=== PATIENT | female | born 2005 | race Hispanic/Latino ===

== ENCOUNTER 2024-04-22 14:03 | Day surgery (SDC) | payer SELFPAY ==
[2024-04-22] MEDS ORDERED: hydrALAZINE 20 MG/ML VIAL SLOW IVP PRN (14:18)
[2024-04-22 14:39] VITALS: BMI 31.5
[2024-04-22] MEDS ORDERED: Lactated Ringer's 1,000 ML IV SCH (15:15)
[2024-04-22 16:05] LABS: Hematocrit 33.4 % (34.9-44.5); Mean Corpuscular HGB CONC 35.9 g/dL (32.0-36.0); Mean Corpuscular Hemoglobin 30.5 pg (27.0-33.0); Mean Corpuscular Volume 84.8 fL (81.6-98.3); Platelet Count 227 10x3/uL (150-450); RBC Distribution Width 13.6 % (11.5-14.5); Red Blood Cell (RBC) Count 3.94 10x6/uL (3.90-5.03); White Blood Cell (WBC) Count 10.3 10x3/uL (3.5-10.5)
[2024-04-22 16:31] LABS: Amphetamine Not Detected (NotDetected); Barbiturates Screen Not Detected (NotDetected); Benzodiazepine Screen Not Detected (NotDetected); Cocaine Metabolite Screen Not Detected (NotDetected); Methadone Not Detected (NotDetected); Methamphetamine Not Detected (NotDetected); Opiate Screen Not Detected (NotDetected); Oxycodone Screen Not Detected (NotDetected); Phencyclidine (PCP) Not Detected (NotDetected); THC/Cannabinoid Screen Not Detected (NotDetected); Tricyclic Screen Not Detected (NotDetected)
[2024-04-22 16:43] LABS: Syphilis Antibody Nonreactive (Nonreactive); Syphilis Antibody Index 0.07 S/CO (<1.00 Non-Reactive)
[2024-04-22 16:44] LABS: HBsAg Index 0.19 S/CO (0-0.99); HIV (1/2) Antibody/Antigen Non-Reactive (NonReactive); HIV 1/2 INDEX 0.05 S/CO (<1.00); Hep B Surf Ag - L&D Non-Reactive S/CO (NonReactive)
[2024-04-23 14:21] LABS: Chlamydia by PCR, Vaginal Swab Not Detected (NotDetected); GC by PCR, Vaginal Swab Not Detected (NotDetected)
== END 2024-04-22 17:33 | disposition home or self-care (01) ==
LOC: CSHLD/OP 14:03
PROVIDERS: ATTEND Obstetrics & Gynecology
DX: O46.92 Antepartum hemorrhage, unspecified, second trimester (principal); O99.891 Other specified diseases and conditions complicating pregnancy; R10.32 Left lower quadrant pain; R00.0 Tachycardia, unspecified; O99.332 Smoking (tobacco) complicating pregnancy, second trimester; F17.290 Nicotine dependence, other tobacco product, uncomplicated; Z3A.21 21 weeks gestation of pregnancy; Z79.899 Other long term (current) drug therapy; Z90.89 Acquired absence of other organs
CPT/HCPCS: 36415; 76815; 80306; 85027; 86762; 86780; 86850; 86900; 86901; 87340; 87389; 87480; 87491; 87510; 87591; 87660; 96360; 99285

== ENCOUNTER 2024-08-18 18:00 | Inpatient (IN) | payer OTHER ==
[2024-08-18 18:34] VITALS: BMI 32.7
[2024-08-18] MEDS ORDERED: Misoprostol 100 MCG TAB VAG SCH (18:36)
[2024-08-18] MEDS ORDERED: Oxytocin 30 units/NS 500 ML 500 ML IV SCH ×2 (18:36)
[2024-08-18] MEDS ORDERED: Ondansetron PF 4 MG/2 ML Vial IVP PRN (18:36)
[2024-08-18] MEDS ORDERED: Carboprost 250 MCG/ML AMP IM PRN (18:36)
[2024-08-18] MEDS ORDERED: Lidocaine 1% (PF) 30 ML VIAL SC PRN (18:36)
[2024-08-18] MEDS ORDERED: hydrALAZINE 20 MG/ML VIAL SLOW IVP PRN (18:36)
[2024-08-18] MEDS ORDERED: Ibuprofen 800 MG TAB PO PRN (18:36)
[2024-08-18] MEDS ORDERED: Methylergonovine 0.2 MG/ML VIAL IM PRN (18:36)
[2024-08-18] MEDS ORDERED: Tranexamic Acid 1,000 MG/10 ML VIAL IVP PRN (18:36)
[2024-08-18] MEDS ORDERED: Misoprostol 200 MCG TAB PR PRN (18:36)
[2024-08-18] MEDS ORDERED: Diphenoxylate HCl/Atropine Tablet PO PRN ×2 (18:36)
[2024-08-18] MEDS ORDERED: Promethazine HCl 25 MG/ML VIAL IM PRN (18:36)
[2024-08-18 19:39] LABS: Hematocrit 34.1 % (34.9-44.5); Hemoglobin 11.5 g/dL (12.0-15.5); Mean Corpuscular HGB CONC 33.7 g/dL (32.0-36.0); Mean Corpuscular Hemoglobin 26.9 pg (27.0-33.0); Mean Corpuscular Volume 79.9 fL (81.6-98.3); Mean Platelet Volume 11.6 fL (7.4-10.4); Platelet Count 237 10x3/uL (150-450); RBC Distribution Width 14.5 % (11.5-14.5); Red Blood Cell (RBC) Count 4.27 10x6/uL (3.90-5.03); White Blood Cell (WBC) Count 7.5 10x3/uL (3.5-10.5)
[2024-08-18] MEDS: Penicillin G Potassium 5 MILL.UNITS in Sodium Chloride 0.9% 100 ML IVPB SCH (19:44)
[2024-08-18 21:22] LABS: Hep B Surf Ag - L&D Non-Reactive S/CO (NonReactive)
[2024-08-18 21:23] LABS: Syphilis Antibody Nonreactive (Nonreactive); Syphilis Antibody Index 0.06 S/CO (<1.00 Non-Reactive)
[2024-08-18] MEDS: Penicillin G 2.5 MILL.units 2.5 MILL.UNITS in Premix 1 BAG IVPB SCH (23:42)
[2024-08-19] MEDS: Oxytocin 30 units/NS 500 ML 500 ML IV SCH (02:39)
[2024-08-19] MEDS: Acetaminophen 500 MG TAB PO PRN (07:00)
[2024-08-19 08:16] LABS: #Basophils 0.02 10x3/uL (0.0-0.2); #Eosinophils 0.02 10x3/uL (0.0-0.5); %Basophils 0.2 % (0.0-2.0); %Eosinophils 0.2 % (0.0-6.0); %Lymphocytes 24.7 % (18.0-47.0); %Monocytes 6.2 % (0.0-10.0); %Neutrophils 68.1 % (40.0-75.0); Hematocrit 35.7 % (34.9-44.5); Hemoglobin 11.5 g/dL (12.0-15.5); Mean Corpuscular HGB CONC 32.2 g/dL (32.0-36.0); Mean Corpuscular Hemoglobin 26.2 pg (27.0-33.0); Mean Corpuscular Volume 81.3 fL (81.6-98.3); Mean Platelet Volume 11.7 fL (7.4-10.4); Platelet Count 204 10x3/uL (150-450); RBC Distribution Width 14.3 % (11.5-14.5); Red Blood Cell (RBC) Count 4.39 10x6/uL (3.90-5.03); White Blood Cell (WBC) Count 8.1 10x3/uL (3.5-10.5)
[2024-08-19 08:28] LABS: ALT (SGPT) 14 U/L (8-55); AST (SGOT) 14 U/L (5-34); Albumin 2.5 g/dL (3.5-5.0); Alkaline Phosphatase 290 U/L (40-100); Anion Gap 13 mmol/L (10-20); BUN (Urea Nitrogen) 12 mg/dL (7.0-18.7); Bilirubin, Total 0.3 mg/dL (0.2-1.2); Calc. Creatinine Clearance 219 mL/min (70-130); Calcium 9.1 mg/dL (7.8-10.44); Carbon Dioxide 20 mmol/L (22-29); Chloride 109 mmol/L (98-107); Estimated GFR 128; Globulin 3.7 g/dL (2.4-3.5); Glucose 81 mg/dL (70-105); Potassium 4.2 mmol/L (3.5-5.1); Protein, Total 6.2 g/dL (6.0-8.3); Sodium 138 mmol/L (136-145)
[2024-08-19 08:28] LABS: Creatinine, Urine 69.94 mg/dL (47-110)
[2024-08-19] MEDS: fentaNYL 50 mcg/mL 1 mL Vial SLOW IVP PRN (13:09)
[2024-08-19] MEDS: fentaNYL/Ropivacaine Epidural 100 ML ONE (15:24)
[2024-08-19] MEDS ORDERED: diphenhydrAMINE 50 MG/ML VIAL IVP PRN (16:03)
[2024-08-19] MEDS ORDERED: Promethazine HCl 25 MG/ML VIAL IM PRN ×2 (16:03→21:06)
[2024-08-19] MEDS ORDERED: ePHEDrine Sulfate 50 MG/10 ML VIAL SLOW IVP PRN (16:03)
[2024-08-19] MEDS ORDERED: Naloxone HCl 0.4 mg/ml Vial IVP PRN ×2 (16:03)
[2024-08-19] MEDS ORDERED: Moisturizing Cream (Eucerin) 113 GM JAR TOP PRN (16:03)
[2024-08-19] MEDS ORDERED: Ondansetron PF 4 MG/2 ML Vial IVP PRN ×2 (16:03→21:06)
[2024-08-19] MEDS ORDERED: Lactated Ringer's 500 ML IV PRN (16:03)
[2024-08-19] MEDS ORDERED: Acetaminophen 325 MG TAB PO PRN (16:03)
[2024-08-19] MEDS ORDERED: fentaNYL 2 mcg/Ropivacaine 0.2% Epidural 100 ML CADD EPIDURAL SCH (16:15)
[2024-08-19] MEDS ORDERED: Communication Order-Pharmacy FS SCH (16:15)
[2024-08-19] MEDS ORDERED: Measles/Mumps/Rubella 10 MCG/0.5 ML VIAL SC ONE (21:06)
[2024-08-19] MEDS ORDERED: Misoprostol 200 MCG TAB VAG PRN (21:06)
[2024-08-19] MEDS ORDERED: diphenhydrAMINE 25 MG CAP PO PRN (21:06)
[2024-08-19] MEDS ORDERED: Bisacodyl 10 MG SUPP PR PRN (21:06)
[2024-08-19] MEDS ORDERED: Oxytocin 30 units/NS 500 ML 500 ML IV SCH (21:06)
[2024-08-19] MEDS ORDERED: hydrALAZINE 20 MG/ML VIAL SLOW IVP PRN (21:06)
[2024-08-19] MEDS ORDERED: Benzocaine-Menthol 82.5 ML CAN TOP PRN (21:06)
[2024-08-19] MEDS ORDERED: Preparation H Ointment 28 GM TUBE PR PRN (21:06)
[2024-08-19] MEDS ORDERED: Boostrix 0.5 ML (Tdap) VIAL (>/=7 yrs of age) IM ONE (21:06)
[2024-08-19] MEDS ORDERED: Milk Of Magnesia 30 ML UDCUP PO PRN (21:06)
[2024-08-19] MEDS ORDERED: Lanolin Ointment 7 GM TUBE TOP PRN (21:06)
[2024-08-19] MEDS: Ibuprofen 800 MG TAB PO SCH ×2 (21:50)
[2024-08-19] MEDS: Docusate 100 MG CAP PO SCH (21:50)
[2024-08-20] MEDS: Ferrous Sulfate 325 MG TAB PO SCH (08:32)
[2024-08-20] MEDS: Docusate 100 MG CAP PO SCH (08:33)
[2024-08-20] MEDS: Prenatal Vitamin 1 TAB PO SCH (08:33)
[2024-08-20] MEDS: Acetaminophen 500 MG TAB PO SCH (19:18)
[2024-08-21 07:38] VITALS: BP 127/65; TEMP 97.7
== END 2024-08-21 11:45 | disposition home or self-care (01) | DRG 807 ==
LOC: CSHLD 18:10 → CSHPP 08-19 20:50
PROVIDERS: ADMIT Family Medicine; ATTEND Family Medicine
PROC: 10E0XZZ Delivery of Products of Conception, External Approach (ICD-10-PCS; principal; 2024-08-19)
PROC: 0UQMXZZ Repair Vulva, External Approach (ICD-10-PCS; 2024-08-19)
DX: O24.425 Gestational diabetes mellitus in childbirth, controlled by oral hypoglycemic drugs (principal); Z37.0 Single live birth; Z3A.38 38 weeks gestation of pregnancy; O36.63X0 Maternal care for excessive fetal growth, third trimester, not applicable or unspecified; O14.04 Mild to moderate pre-eclampsia, complicating childbirth; Z79.899 Other long term (current) drug therapy; Z79.82 Long term (current) use of aspirin; Z79.84 Long term (current) use of oral hypoglycemic drugs; O70.0 First degree perineal laceration during delivery; O99.824 Streptococcus B carrier state complicating childbirth
CPT/HCPCS: 36415; 36416; 51702; 80053; 82570; 84156; 85025; 85027; 86780; 86850; 86900; 86901; 87340; J2540; J2590; J3010